=== PATIENT | female | born 1995 | race Caucasian/White ===

== ENCOUNTER 2019-04-30 04:00 | Inpatient (IN) | payer SELFPAY ==
[2019-04-29 22:43] VITALS: BMI 42.3
[2019-04-29 23:17] LABS: ROM Internal Control Test YES-OK TO RESULT pt. (Internal QC); ROM Patient Test Negative (Negative); Record Kit Lot#, ROM+ J8255
[2019-04-30] VITALS (18 sets, daily range): BP systolic 99–124; BP diastolic 43–74; PULSE 74–100; RESP 16–18; TEMP 36.2–37.1; O2SAT 95–98
[2019-04-30] MEDS: Lactated Ringers 1,000 ML 999 ML IV
[2019-04-30] MEDS: hydrOXYzine PAM 25 MG Capsule 100 MG PO (00:28)
[2019-04-30] MEDS: 0.9% Saline Lock 10 ML Syringe IV ×3 (01:01→21:22)
[2019-04-30] MEDS: Nalbuphine 10 MG/ML Ampul IV (03:46)
[2019-04-30] MEDS: Lactated Ringers 1,000 ML 200 ML IV (03:59)
[2019-04-30] MEDS: Lactated Ringers 500 ML 999 ML IV ×3 (03:59→07:53)
[2019-04-30 04:45] LABS: Absolute Lymphocyte Count 1.49 X10^3/uL (0.83-4.51); Absolute Neutrophil Count 10.6 X10^3/uL (2.0-7.7); Basophil# 0.03 X10^3/uL; Basophil% 0.2 % (0-1); Eosinophil# 0.06 X10^3/uL; Eosinophils% 0.5 % (0-5); Hematocrit 36.7 % (37-47); Hemoglobin 12.1 g/dL (12.0-15.0); Lymphocyte # 1.49 X10^3/ul (4.0); Lymphocyte % 11.3 % (19-41); Mean Corpuscular Hgb 27.1 pg (27.0-32.0); Mean Corpuscular Volume 82.3 fL (81-99); Mean Platelet Vol. 11.1 fl (6.2-12.0); Monocyte# 0.99 X10^3/uL; Monocyte% 7.5 % (0-10); NRBC Flagged by Analyzer 0 % (0-5); Neutrophil # 10.58 X10^3/uL (2.7-7.7); POSITIVE COUNT YES; Platelet Count 273 K/mm3 (150-450); RBC Distribution Width CV 12.8 % (11.6-14.6); RBC Distribution Width SD 38.3 fl (35.1-43.9); Red Blood Count 4.46 M/mm3 (4.2-5.4); White Blood Count 13.2 K/mm3 (4.4-11.0)
[2019-04-30 05:11] LABS: Differential Indicated SCAN CRITERIA MET
[2019-04-30 05:22] LABS: Differential Comment SCANNED
--- NOTE | 2019-04-30 06:42 | PCM.HP.OB ---
History Date of Admission: 04/30/19 Final MARCUS: 04/27/19 Gestational age: 40 Weeks and 3 Days History of this : This is a 23 year-old, 1 para 0 at 40-3/7 weeks gestation presents complaining contractions found to be in active labor. She denies any gross vaginal bleeding or leaking of fluid. Her has been complicated to date with obesity with BMI 42. She has otherwise been uncomplicated to date. Allergies amoxicillin Allergy (Verified 04/29/19 23:45) Hives Home Medications: Home Medications Famotidine/Ca Carb/Mag Hydrox [Pepcid Complete Tablet Chew] 1 ea PO DAILY PRN 04/30/19 Vits [Prenatabs FA] 2 tab PO DAILY 04/30/19 Smoking Status: Never smoker Alcohol: None Number of Fetus(es): 1 History Past Pregnancies: Past Pregnancies Delivery Date Name GA/Weeks Outcome Route Weight Gender Labor Length Anesthesia Delivery Location Provider FOB Expected Delivery Method: Spontaneous Vaginal Review of Systems Constitutional: Denies: Chills, Fever Eyes: Denies: Blurred vision Cardiovascular: Denies: Chest Pain Respiratory: Denies: Cough Gastrointestinal: Denies: Vomiting Genitourinary: Denies: Dysuria Skin: Denies: Rash Neurological: Denies: Slurred speech Hematologic/ Lymphatic: Denies: Anemia Physical Exam General: Alert, Cooperative, No apparent distress Cardiovascular: Regular rate Lungs: Normal air movement Abdomen: Soft, Non-Distended, Gravid, Obese, Appropriate for Gestational Age Extremities:: Other - edema 1+ [employer]GER: Normal external genitalia Estimated gestational size: Appropriate for gestational size Presentation: Cephalic Cervix Dilation (cm): 6 - arom w/ moderate clear fluid Station: -1 Effacement (%): 90 Assessment/Plan This is a 23 year-old, 1 para 0 at 40-3/7 weeks gestation in spontaneous labor. Patient had a prolonged deceleration and some variables upon admission. She also had some early and late decelerations. No repetitive decelerations currently. Patient desires epidural for pain control. Estimated weight is less than 4500 g clinically and pelvis clinically adequate to expect vaginal delivery.
--- NOTE | 2019-04-30 08:40 | NURSING ---
0855 dr lucas was in OR for c/s being done when pt wanted epidrual at 0607, and dr lyons was in the main OR
[2019-04-30] MEDS: Sodium Citrate/Citric Acid 30 ML UDC PO (08:42)
--- NOTE | 2019-04-30 11:04 | OP.PCM_ITS ---
Delivery Classification: JOSE Final MARCUS: 04/27/19 Gestational age: 40 Weeks and 3 Days transcript evaluator: Angela Ricks Type of Anesthesia:: Epidural Date of Procedure: 04/30/19 Pre-Operative Diagnosis: Non reassuring heart tracing Post-Operative Diagnosis: Same Indications: 23yo G1 presented in labor. She was having repetitive decelerations and the decision was made to proceed with a primary . Patient was 6cm dilated. Indications for : Distress Description of Procedure: Patient taken to OR where epidural anesthesia was dosed. She was prepped and draped in normal sterile fashion in the dorsal supine position with a leftward tilt. After ensuring adequacy of anesthesia the Pfannensteil skin incision was made and carried through to the underlying fascia with a bovie. The fascia was incised in the midline and carried laterally with the Kwok scissors. The rectus muscles were in the midline and the peritoneum was entered bluntly. The bladder flap was dissected down carefully with the Metzenbaum scissors and blunt dissection. The uterus was incised in a transverse fashion and then incision extended with cephalocaudad traction. The fetus was vertex and the head was brought to the incision in the flexed position. With good fundal pressure the head easily delivered. The head was gently guided to allow delivery of anterior & posterior shoulders. No excess traction placed on head. The body delivered easily. The 3VC cord was clamped and cut after 1 minute delay and the handed off to the waiting RN. The placenta was delivered w/ gentle traction and fundal massage and the uterus was exteriorized and cleared of all clots and debris. The uterine incision was closed with 1 vicryl suture in a running locked fashion. The bovie was used to further obtain further hemostasis of the uterine incision. A second imbricating layer of monocryl was placed. The uterus was returned to the peritoneal cavity. The pelvis was irrigated & then cleared of all clots and debris. The uterine incision was reexamined and found to be hemostatic. Some surgicel powder was placed over the uterine incision due to the denuded areas. The parietal peritoneum was reapproximated with running vicryl suture. The fascia was closed with looped PDS suture in a running standard fashion. The subcutaneous tissue was examined & any bleeding bovie cauterized. The subcutaneous tissue was reapproximated with plain gut suture. The skin was closed in a subcuticular fashion by the PIECE MARKER SMALL ARMS with me present in the labor and delivery suite. I performed the remainder of the procedure w/ assistance. Amniotic Membrane Rupture Type: Artificial Amniotic Fluid Description: Clear Placenta Disposition: [facility] Drain: Ellison to straight drain Fluids Replaced: 950ml Cord Entanglement: None Cord Vessel Description: 3 Vessels Esitmated Blood Loss (ml): 800ml Infant Gender: Male - Varun - weight =8-7 (1 minute): 8 (5 minute): 9 Delayed cord clamping: Yes Antibiotic Given: Ancef 3 grams IV x1, Zithromax 500 mg/5 mL X1 Complications: None
[2019-04-30] MEDS: Lactated Ringers 1,000 ML 150 ML IV (11:06)
[2019-04-30] MEDS: Oxytocin 30 units/NS 500 ml 30 UNITS/500 ML IV.SOLN 167 UNITS IV (11:07)
[2019-04-30] MEDS: Hydrocortisone 2.5% Crm 1 APPLIC TOPICAL (15:14)
[2019-04-30] MEDS: Ketorolac 30 MG/ML Syringe IV ×2 (15:14→21:22)
--- NOTE | 2019-04-30 20:32 | NURSING ---
Indwelling najera catheter present. WNL.
--- NOTE | 2019-04-30 20:32 | NURSING ---
Addendum entered by Shira Bledsoe RN 04/30/19 20:39: Patient educated on signs and symptoms of a PPH. Advised patient to call for help if she experiences any more gushes of blood or clots. Vital signs stable. Original Note: Patient had a gush of blood when she stood up from the chair. Patient's uterus firm and 2 below. Bleeding stopped after patient got back into bed and fundus checked.
[2019-05-01] VITALS (9 sets, daily range): BP systolic 99–110; BP diastolic 55–62; PULSE 85–108; RESP 16–20; TEMP 36.6–37.1; O2SAT 96–99
--- NOTE | 2019-05-01 00:13 | NURSING ---
Indwelling urinary catheter present. WNL.
[2019-05-01] MEDS: 0.9% Saline Lock 10 ML Syringe IV ×4 (03:15→21:03)
[2019-05-01] MEDS: Ketorolac 30 MG/ML Syringe IV ×4 (03:15→21:00)
[2019-05-01 07:00] LABS: Absolute Lymphocyte Count 2.02 X10^3/uL (0.83-4.51); Absolute Neutrophil Count 11.2 X10^3/uL (2.0-7.7); Basophil# 0.02 X10^3/uL; Basophil% 0.1 % (0-1); Eosinophils% 0.7 % (0-5); Hematocrit 23.8 % (37-47); Hemoglobin 7.7 g/dL (12.0-15.0); Lymphocyte # 2.02 X10^3/ul (4.0); Lymphocyte % 13.9 % (19-41); Mean Corp Hgb Conc 32.4 g/dL (32-36); Mean Corpuscular Hgb 26.9 pg (27.0-32.0); Mean Corpuscular Volume 83.2 fL (81-99); Mean Platelet Vol. 9.8 fl (6.2-12.0); Monocyte# 1.09 X10^3/uL; Monocyte% 7.5 % (0-10); NRBC Flagged by Analyzer 0 % (0-5); Neutrophil # 11.18 X10^3/uL (2.7-7.7); Neutrophil % 76.8 % (47-70); Platelet Count 232 K/mm3 (150-450); RBC Distribution Width CV 13.3 % (11.6-14.6); RBC Distribution Width SD 40.6 fl (35.1-43.9); Red Blood Count 2.86 M/mm3 (4.2-5.4); White Blood Count 14.6 K/mm3 (4.4-11.0)
--- NOTE | 2019-05-01 09:12 | PCM.PN.OB ---
Subjective: Well controlled. Average lochia. No nausea or vomiting. Has been up to urinate this morning. - Physical Exam General: Alert, Cooperative, No apparent distress Abdomen: Soft, Non-Distended, Obese, Tender - Appropriately Extremities: Edema - 2+ Skin: Incision - The bandage is clean dry and intact Vital Signs Temp Pulse Resp BP Pulse Ox 98.7 F 96 16 99/57 L 99 05/01/19 03:17 05/01/19 07:18 05/01/19 07:18 05/01/19 03:17 05/01/19 07:18 Oxygen Delivery Method Room Air Weight: 112 kg Body Mass Index (BMI) 42.3 Intake and Output for Last 24 Hours 04/29/19 04/30/19 05/01/19 23:59 23:59 23:59 Intake Total 6240.00 / 6240.00 1400 / 1400 Output Total 575 / 575 950 / 950 Balance 5665.00 / 5665.00 450 / 450 Laboratory Tests Past 24 Hrs 05/01/19 06:33 WBC 14.6 H RBC 2.86 L Hgb 7.7 L Hct 23.8 L MCV 83.2 MCH 26.9 L MCHC 32.4 RDW Std Deviation 40.6 RDW Coeff of Meg 13.3 Plt Count 232 MPV 9.8 Immature Gran % (Auto) 1.000 H Neut % (Auto) 76.8 H Lymph % (Auto) 13.9 L [place] % (Auto) 7.5 Eos % (Auto) 0.7 Baso % (Auto) 0.1 Absolute Neuts (auto) 11.2 H Absolute Lymphs (auto) 2.02 Nucleated RBC % 0 Medical Necessity - Tobacco Use Smoking Status: Never smoker Assessment/Plan Postoperative day #1 status post primary section. Patient and are doing well. She is tolerating acute blood loss anemia well. Will recheck CBC in the morning. Monitor for signs and symptoms of hypovolemia. Patient is working on breast-feeding. Routine postoperative care.
[2019-05-01] MEDS: Acetaminophen 500 MG Tablet 1000 MG PO (17:12)
--- NOTE | 2019-05-01 21:21 | NURSING ---
left side of meplex silver has pulled loose, new meplex dressing applied using sterile technique.
[2019-05-02 02:30] VITALS: BP 118/73; PULSE 100; RESP 18; TEMP 36.6
[2019-05-02] MEDS: Ketorolac 30 MG/ML Syringe IV ×2 (02:33→09:13)
[2019-05-02] MEDS: 0.9% Saline Lock 10 ML Syringe IV ×3 (02:34→09:13)
[2019-05-02] MEDS: Acetaminophen 500 MG Tablet 1000 MG PO (05:09)
[2019-05-02 05:11] LABS: Hematocrit 24.2 % (37-47); Hemoglobin 7.8 g/dL (12.0-15.0); Mean Corp Hgb Conc 32.2 g/dL (32-36); Mean Corpuscular Hgb 27.1 pg (27.0-32.0); Mean Platelet Vol. 9.6 fl (6.2-12.0); Platelet Count 256 K/mm3 (150-450); RBC Distribution Width CV 13.3 % (11.6-14.6); RBC Distribution Width SD 40.5 fl (35.1-43.9); Red Blood Count 2.88 M/mm3 (4.2-5.4)
[2019-05-02 07:21] VITALS: BP 117/70; PULSE 90; RESP 16; TEMP 36.1; O2SAT 97
--- NOTE | 2019-05-02 09:52 | PN.OBGYN_ITS ---
Subjective: Pain well controlled, average lochia. Patient has had a bowel movement. Is ambulating urinating without difficulty. She denies any chest pain, pa lpitations, lightheadedness or shortness of breath. - Physical Exam General: Alert, Cooperative, No apparent distress Abdomen: Soft, Distended - Mildly, softly, Obese, Tender - Appropriately Extremities: Edema - 2+, no clonus. Skin: Incision - The bandage is clean dry and intact Vital Signs Temp Pulse Resp BP Pulse Ox 97 F L 90 16 117/70 97 05/02/19 07:21 05/02/19 07:21 05/02/19 07:21 05/02/19 07:21 05/02/19 07:21 Oxygen Delivery Method Room Air Weight: 112 kg Body Mass Index (BMI) 42.3 Intake and Output for Last 24 Hours 04/30/19 05/01/19 05/02/19 23:59 23:59 23:59 Intake Total 6240.00 / 6240.00 1400 / 1400 Output Total 575 / 575 1475 / 1475 Balance 5665.00 / 5665.00 -75 / -75 Laboratory Tests Past 24 Hrs 05/02/19 05:03 WBC 12.0 H RBC 2.88 L Hgb 7.8 L Hct 24.2 L MCV 84.0 MCH 27.1 MCHC 32.2 RDW Std Deviation 40.5 RDW Coeff of Meg 13.3 Plt Count 256 MPV 9.6 Medical Necessity - Tobacco Use Smoking Status: Never smoker Assessment/Plan Operative day #2 status post primary section. Patient doing well. Routine instructions and discharge instructions were given.
--- NOTE | 2019-05-02 09:53 | DS.PCM_ITS ---
Discharge Date and Diagnosis Date of Admission: 04/30/19 Date of Discharge: 05/02/19 Hospital Course and Treatment Operations: - - Primary low transverse section via Pfannenstiel skin incision with double layer uterine closure Procedures: None Summary of Care Provided: The patient is a 23 year old [employer] 1 para 0 who was admitted in labor. She had several prolonged decelerations. She had variable and late decelerations. Her active phase of labor was somewhat prolonged. She was at 6 cm without significant change. With persistent category 2 heart tracing remote from delivery, decision was made to proceed with section. section was performed without difficulty. EBL was estimated to be 800 cc at time of surgery. However, based on lab changes, overall estimated blood loss after surgery would have been around 2300 cc, she is consistent with postoperative hemorrhage. She did not have atony.. She had significant postoperative anemia which she was tolerating well. Postoperative day #2 her hemoglobin was stable and did not fall further. She was tolerating the anemia well. She was discharged home with routine instructions and prescriptions. She is to start iron and continue her vitamins. Prescription for narcotics was not given as patient was not taking them in the hospital. - Physical Exam Vital Signs Temp Pulse Resp BP Pulse Ox 97 F L 90 16 117/70 97 05/02/19 07:21 05/02/19 07:21 05/02/19 07:21 05/02/19 07:21 05/02/19 07:21 Oxygen Delivery Method Room Air Weight: 112 kg Body Mass Index (BMI) 42.3 Intake and Output for Last 24 Hours 04/30/19 05/01/19 05/02/19 23:59 23:59 23:59 Intake Total 6240.00 / 6240.00 1400 / 1400 Output Total 575 / 575 1475 / 1475 Balance 5665.00 / 5665.00 -75 / -75 Laboratory Tests Past 24 Hrs 05/02/19 05:03 WBC 12.0 H RBC 2.88 L Hgb 7.8 L Hct 24.2 L MCV 84.0 MCH 27.1 MCHC 32.2 RDW Std Deviation 40.5 RDW Coeff of Meg 13.3 Plt Count 256 MPV 9.6 Discharge Diet: No Restrictions Discharge Activity: Return to Normal Activity, May Not Drive - for 2 weeks, May not drive while taking narcotic pain medications., May Shower, May Take a Tub Bath - in 7 days. May resume sexual activity in: 4-6 weeks Additional Activity Instructions:: Nothing in the vagina for 4-6 weeks. You may return to work/school in 6 weeks. Call your doctor if your incision/area has: Continuous Slow Oozing, Sudden Increased Bleeding, Increased Pain/ Swelling, Increased Redness, Foul Smelling Discharge Call your doctor if you observe: Fever of 101 or Higher, Using more than one pad per hour - for 2 hours Suture Line Care: Avoid Pulling/Pushing, Avoid Pinching/Bending Cleanse incision/area with: Keep Dressing Clean & Dry Home Medications: Medications to take at Discharge Vits [Prenatabs FA ] 2 tab PO DAILY 04/30/19 Ferrous Sulfate 325 mg PO QODAY #15 tab 05/02/19 Ibuprofen [Motrin] 600 mg PO Q6H PRN #60 tab 05/02/19 Following Prescrptions Were Given to Patient: Ferrous Sulfate 325 mg PO QODAY #15 tab Transmission Status: Received by [facility] #[id number] Ibuprofen [Motrin] 600 mg PO Q6H PRN #60 tab PRN Reason: Pain Transmission Status: Received by [facility] #[id number] Primary Care Physician: Care Physician,No Primary [Primary Care Provider] - Please Follow Up With: Carito Bettencourt - Call to make an appointment for an incision check in 1-2 [phone] When: You will need a post check in 6 weeks. Medical Necessity - Tobacco Use Smoking Status: Never smoker Meaningful Use Info Meaningful Use Diagnoses (Choose all that apply): None applicable
--- NOTE | 2019-05-02 09:53 | DCINST_ITS ---
Discharge Diet: No Restrictions Discharge Activity: Return to Normal Activity, May Not Drive - for 2 weeks, May not drive while taking narcotic pain medications., May Shower, May Take a Tub Bath - in 7 days. May resume sexual activity in: 4-6 weeks Lifting Restrictions: 20 pounds Additional Activity Instructions:: Nothing in the vagina for 4-6 weeks. You may return to work/school in 6 weeks. Call your doctor if your incision/area has: Continuous Slow Oozing, Sudden Increased Bleeding, Increased Pain/ Swelling, Increased Redness, Foul Smelling Discharge Call your doctor if you observe: Fever of 101 or Higher, Using more than one pad per hour - for 2 hours Suture Line Care: Avoid Pulling/Pushing, Avoid Pinching/Bending Cleanse incision/area with: Keep Dressing Clean & Dry Additional Instructions: If you experience any of the following, contact your healthcare provider. * Bleeding that soaks a pad every hour for 2 hours * Fever 100.4 or higher * Unrelieved incision or abdominal pain * Swelling, redness, discharge or bleeding from your incision or episiotomy site * Your incision begins to separate * Problems urinating (including inability to urinate or burning while urinating). * Visual changes * Severe headache * Flu-like symptoms * Pain or redness in one of both of your breasts * Pain, warmth, tenderness or swelling in your legs, especially the calf area * Frequent nausea and vomiting * Symptoms of depression or anxiety If you experience any of the following, call 911 or go to the nearest Emergency Room. * Chest pain * Problems breathing * Seizure activity * Partial or complete paralysis of a body part, slurred speech, weakness or drooping of the face, or a sudden inability to walk or hold your balance Allergies/Adverse Reactions: Allergies amoxicillin Allergy (Verified 04/29/19 23:45) Hives Medications to take at Discharge Vits [Prenatabs FA ] 2 tab PO DAILY 04/30/19 Ferrous Sulfate 325 mg PO QODAY #15 tab 05/02/19 Ibuprofen [Motrin] 600 mg PO Q6H PRN #60 tab 05/02/19 The following prescriptions were given: Ferrous Sulfate 325 mg PO QODAY #15 tab Transmission Status: Pending to [facility] #[id number] Ibuprofen [Motrin] 600 mg PO Q6H PRN #60 tab PRN Reason: Pain Transmission Status: Pending to [facility] #[id number] Follow-Up: Call to make an appointment with your doctor for an incision check in 1-2 weeks. You will also need a 6 week post- follow up appointment. Test results from this visit will be discussed in further detail at your follow- up appointment, if applicable. Please Follow Up With: Carito Bettencourt - Call to make an appointment for an incision check in 1-2 [phone] When: You will need a post check in 6 weeks. Primary Care Physician: Care Physician,No Primary [Primary Care Provider] -
== END 2019-05-02 11:20 | disposition home or self-care (01) | DRG 787 ==
LOC: WPOUT 04:06
PROVIDERS: Advanced Practice Midwife; Obstetrics & Gynecology; Admitting Provider Obstetrics & Gynecology; Visit Provider Obstetrics & Gynecology
DX: O76 Abnormality in fetal heart rate and rhythm complicating labor and delivery (principal); O72.1 Other immediate postpartum hemorrhage; D62 Acute posthemorrhagic anemia; O90.81 Anemia of the puerperium; O99.214 Obesity complicating childbirth; E66.9 Obesity, unspecified; Z3A.40 40 weeks gestation of pregnancy; Z37.0 Single live birth
CPT/HCPCS: 59050; 84112; 85025; 85027; 86850; 86900; 86901; 99218; J7050; J7120; A4216; G0378; J2405

== ENCOUNTER 2021-10-17 16:50 | Outpatient (CLI) | payer SELFPAY ==
[2021-10-17 17:09] VITALS: TEMP 36.1
[2021-10-17 17:15] VITALS: BP 114/78; PULSE 92
[2021-10-17 17:16] VITALS: PULSE 109; O2SAT 97
[2021-10-17 19:39] VITALS: BMI 41.6
--- NOTE | 2021-10-30 16:43 | OB.TRI.NOTE ---
HPI - General HPI Narrative ARPITA SIMMONS, is a 25 F who presents for extended monitoring due to deceleration. No vaginal bleeding or leakage of fluid PFSH PFSH Medical History (Updated 10/25/21 @ 00:01 by Background Daemon) delivery delivered Headache Maternal obesity affecting , antepartum Polyhydramnios Polyhydramnios, third trimester, delivered Home Medications vit,[id number] 2 tab PO DAILY 04/30/19 [History Last Taken 10/17/21] ibuprofen 600 mg PO Q6H PRN #60 tablet 10/22/21 [Rx Last Taken Unknown] Allergy/AdvReac Type Severity Reaction Status Date / Time amoxicillin Allergy Hives Verified 10/20/21 15:14 Surgical History (Updated 10/25/21 @ 00:01 by Background Daemon) Previous section Social History Smoking Status: Never smoker History Elective abortions Hx Para 1 Spontaneous abortions Hx # Term Pregnancies Ectopic pregnancies Hx # Pregnancies Multiple births # of living children NST FHR Rate Baby A Baseline: 140 Variability:: Moderate Accelerations:: 15 x 15 Decelerations:: Variable NST Reactive:: Yes Assessment & Plan (1) 38 weeks gestation of : (2) BMI 40.0-44.9, adult: PLAN: 1) Reactive NST 2) D/C home
== END 2021-10-17 23:59 | disposition home or self-care (01) ==
LOC: WPOUT 16:58 → WP 16:59
PROVIDERS: Visit Provider Advanced Practice Midwife
DX: O36.8330 Maternal care for abnormalities of the fetal heart rate or rhythm, third trimester, not applicable or unspecified (principal); Z3A.38 38 weeks gestation of pregnancy; O34.219 Maternal care for unspecified type scar from previous cesarean delivery; O99.213 Obesity complicating pregnancy, third trimester; E66.9 Obesity, unspecified
CPT/HCPCS: 59025; 59050; 99218; G0378

== ENCOUNTER 2021-10-20 13:50 | Inpatient (IN) | payer SELFPAY ==
[2021-10-20] VITALS (26 sets, daily range): BP systolic 96–128; BP diastolic 50–80; PULSE 63–88; RESP 16–18; TEMP 36.1–36.5; O2SAT 95–100; BMI 41.5
[2021-10-20] MEDS: Lactated Ringers 1,000 ML 999 ML IV (15:30)
[2021-10-20 15:46] LABS: Absolute Lymphocyte Count 1.31 X10^3/uL (0.83-4.51); Absolute Neutrophil Count 8.2 X10^3/uL (2.0-7.7); Basophil# 0.03 X10^3/uL; Basophil% 0.3 % (0-1); Eosinophil# 0.02 X10^3/uL; Eosinophils% 0.2 % (0-5); Hematocrit 35.7 % (37-47); Hemoglobin 12.8 g/dL (12.0-15.0); Lymphocyte # 1.31 X10^3/ul (0.83-4.51); Mean Corp Hgb Conc 35.9 g/dL (32-36); Mean Corpuscular Hgb 29.3 pg (27.0-32.0); Mean Corpuscular Volume 81.7 fL (81-99); Mean Platelet Vol. 9.4 fl (6.2-12.0); Monocyte# 0.51 X10^3/uL; NRBC Flagged by Analyzer 0 % (0-5); Neutrophil # 8.19 X10^3/uL (2.7-7.7); Neutrophil % 81.1 % (47-70); Platelet Count 272 K/mm3 (150-450); RBC Distribution Width CV 13.1 % (11.6-14.6); RBC Distribution Width SD 38.8 fl (35.1-43.9); Red Blood Count 4.37 M/mm3 (4.2-5.4); White Blood Count 10.1 K/mm3 (4.4-11.0)
[2021-10-20] MEDS: Acetaminophen 500 MG Tablet 1000 MG PO ×2 (16:02→22:05)
[2021-10-20] MEDS: Sodium Citrate/Citric Acid 30 ML UDC PO (16:03)
--- NOTE | 2021-10-20 16:15 | NURSING ---
Report received from Maria Antonia MOSELEY, taking over pt care at this time.
[2021-10-20] MEDS: Lactated Ringers 1,000 ML 150 ML IV (16:31)
[2021-10-20] MEDS: Cefazolin 2 GM in 0.9% Normal Saline 100 ML IV (16:40)
--- NOTE | 2021-10-20 16:45 | PCM.HP.OB ---
HPI - General General Date of Admission: 10/20/21 HPI Narrative ARPITA SIMMONS, is a 25-year-old female 3 para 1-0-1-1 who presents at 38 weeks gestation in the office. She had a complaint today of a persistent headache. Denies visual changes, epigastric pain. Is been present for approximately 3 days waxing and waning. Tylenol did not help. She was able to sleep last night and felt a little better this morning but it came back later this afternoon. She not take anything for it today. She notes she has had decreased movement over the past few days and has barely been getting 10 movements in 2 hours. She has been having some [place] contractions and intermittent abdominal pain. She denies any gross vaginal bleeding or leaking of fluid. She was seen in the office and had a late deceleration on nonstress test. Decision was made to proceed with section as she had a previous section and is full-term. Maternal Data Information Final MARCUS: 11/01/21 Final MARCUS Source: LMP Gestational age: 38 0/7 [facility] Medical History (Updated 10/20/21 @ 16:[address] Joselin Ding MD) Headache Polyhydramnios Home Medications vit,[id number] 2 tab PO DAILY 04/30/19 [History Last Taken 10/17/21] Allergy/AdvReac Type Severity Reaction Status Date / Time amoxicillin Allergy Hives Verified 10/20/21 15:14 Surgical History (Updated 10/20/21 @ 16:[address] Joselin Ding MD) Previous section Social History Smoking Status: Never smoker History Elective abortions Hx Para 1 Spontaneous abortions Hx # Term Pregnancies Ectopic pregnancies Hx # Pregnancies Multiple births # of living children ROS Constitutional Constitutional: Denies fatigue, fever(s) or malaise Eyes Eyes: Denies change in vision ENT HEENT: Denies dizziness or headache(s) Cardiovascular Cardiovascular: Denies chest pain, dyspnea or lightheadedness Respiratory/Chest Respiratory/Chest: Denies cough or dyspnea Gastrointestinal Gastrointestinal: Denies change in bowel habits Genitourinary Genitourinary: Denies burning urination or genital lesions Integumentary Integumentary: Denies rash Neurologic Neurologic: Denies confusion, dizziness, headache(s), numbness or weakness Vital Signs Vital Signs Vital Signs: 10/20/21 15:42 10/20/21 15:46 Temperature 97.7 F L Temperature Source Tympanic Pulse Rate 76 88 Blood Pressure 122/71 H BP Systolic 122 BP Diastolic 71 Pulse Ox 98 98 Weight Weight: 106.413 kg Body Mass Index (BMI) 41.5 Physical Exam Const alert and no apparent distress General Appearance: cooperative HEENT normocephalic Resp normal respiratory effort Cardio regular rate GI soft to palpation GI Narrative: gravid, nontender, appropriate for gestational age Extremity no calf tenderness General Extremity: edema Skin no wounds Rashes: No rashes noted Psych activity/motor behavior normal Labs Labs Labs: Blood Type B POSITIVE Antibody Screen NEGATIVE Hct 35.7 % (37-47) L Hgb 12.8 g/dL (12.0-15.0) Rhogam given: No Assessment & Plan (1) 38 weeks gestation of : PLAN: Risk benefits alternatives to repeat section were discussed with patient, questions were answered to her satisfaction and consent was signed. She desires to proceed. We will proceed with delivery as patient is multiple complaints and risk factors and is full-term. Risk of continuing the at 38 weeks versus risk of delivery at 38 weeks were reviewed. (2) Previous delivery affecting , antepartum: (3) Maternal obesity affecting , antepartum: (4) BMI 40.0-44.9, adult: (5) heart deceleration: (6) Decreased movement affecting management of in third trimester: (7) Polyhydramnios affecting in first trimester:
--- NOTE | 2021-10-20 17:04 | UTER_PTH ---
PATIENT: ARPITA SIMMONS LOC: [facility] U#:[id number] AGE/SX: 25/F ROOM: [facility] RE10/20/[address]: Dr. 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 AM:cortez 10/24/2021 MICROSCOPIC DESCRIPTION Slides are reviewed. GROSS DESCRIPTION Received in fixative is one container labeled with the patient's name and designated uterine fibroid. The specimen consists of a rubbery fragment of pink-mar soft tissue measuring 3 x 1.8 x 1 cm. The specimen is serially sectioned along its narrow axis to reveal homogenous pink-white cut surfaces. The specimen is totally submitted in two cassettes. / AM:cortez 10/23/2021 TC:1 CPT: 28656
--- NOTE | 2021-10-20 17:34 | OP.PCM_ITS ---
Assessment & Plan (1) Polyhydramnios, third trimester, delivered: (2) BMI 40.0-44.9, adult: (3) Maternal obesity affecting , antepartum: (4) delivery delivered: Maternal Data Information Final MARCUS: [birth year]21 Gestational age: 38 Details Operative Information Date of Procedure: 10/20/21 Pre-Operative Diagnosis: 38 weeks, deceleration previous c/s, polyhydramnios, decreased movement Post-Operative Diagnosis: same Indications for : Repeat Elective Classification: Scheduled Procedure Type: low transverse dry charge process attendant #1: Rosalee Mckenzie Type of Anesthesia: Spinal Anesthesiologist: Regan Rosario Special Medications: duramorph Antibiotic Given: Ancef 2 grams IV x1 Drain: Ellison to straight drain Estimated Blood Loss: 800 Fluids Replaced: 500 Procedure Start Time: 17:00 Time of Delivery: 17:04 Findings Description of Procedure: The patient was taken to the operating room. She was prepped and draped in the dorsal supine position with a leftward tilt. A Pfannenstiel skin incision was made approximately 2 cm above the symphysis pubis and carried through to underlying layer fascia with the scalpel. The fascia was incised incised in the midline and extended laterally with the Kwok scissors. The fascia was dissected off the rectus muscles with blunt and sharp dissection. The rectus muscles were in the midline and the peritoneum was entered bluntly. The peritoneal incision was stretched and the bladder blade was placed. The uterine incision was made in a low transverse fashion with the scalpel and extended superiorly and inferiorly with blunt dissection. The amniotic membranes were ruptured bluntly and clear amniotic fluid returned. The infant's head was brought to the incision in the flexed position and delivered without difficulty. The remainder of the was delivered with gentle traction and fundal pressure in the standard fashion. The mouth and nares were bulb suctioned. The cord was clamped and cut as the infant was stimulated. Cord clamping was delayed. The was handed off to the waiting nursing staff. The placenta was delivered with fundal massage and gentle traction in the standard fashion. The uterus was exteriorized and cleared of all clots and debris. The cervix was dilated with a ring forcep. The uterine incision was closed with #1 Vicryl in a running locked fashion. A second layer of the same suture was used in an imbricating fashion. The incision was examined and was found to be hemostatic. There was a small fibroid on the right mid uterine fundus. This was on the anterior surface of the uterus. There were some omental adhesions. These were taken down with the Bovie. The small fibroid was then clamped at the base with a Kerri clamp and removed with the Bovie. #1 Vicryl [id number] suture was placed around the pedicle and it was hemostatic. The specimen was sent. The uterus was placed back into the peritoneal cavity and hemostasis was again confirmed. The rectus muscles were examined and any bleeding was Bovie cauterized. The parietal peritoneum and rectus muscles were closed en bloc with an 0 Vicryl running suture. The surgical teams outer gloves were then changed. The rectus fascia was examined and any bleeding was Bovie cauterized and the rectus fascia was closed with 0 PDS suture in a running standard fashion. The subcutaneous tissue was examining and any bleeding was Bovie cauterized. The subcutaneous tissue was reapproximated with 3-0 Vicryl suture. The skin was closed in a subcuticular fashion by the HANDBELL CHOIR DIRECTOR with me present in the labor and delivery suite. I performed the remainder of the procedure with assistance. All sponge, lap, and needle counts were correct. The patient was taken to her room for recovery in a stable condition. Presentation: Positive for Vertex Amniotic Membrane Rupture Type: Artificial Amniotic Fluid Description: Clear Placental Delivery Description: Expressed Placenta Disposition: [facility] Specimen(s) Sent to Pathology: fibroid Cord Vessel Description: 3 Vessels Cord Entanglement: None A Gender: Male (Hunter, 7lb 13 oz) (1 minute): 8 (5 minute): 9 Delayed Cord Clamping: Yes Complications Complications: none Admit VTE Documentation VTE Present on Admission: No VTE Mechan Device Prophylaxis: SCD's VTE Pharm Prophylaxis Ordered: Yes
[2021-10-20] MEDS: Oxytocin 30 units/NS 500 ml 30 UNITS/500 ML IV.SOLN 167 UNITS IV (18:20)
[2021-10-20] MEDS: Ketorolac 30 MG/ML Syringe IV (19:05)
[2021-10-20 21:44] LABS: Pathology Specimen OB SEE PATHOLOGY REPORT
[2021-10-20] MEDS: Lactated Ringers 1,000 ML 100 ML IV (22:02)
[2021-10-21] VITALS (13 sets, daily range): BP systolic 92–100; BP diastolic 47–57; PULSE 66–82; RESP 16–18; TEMP 36.2–36.9; O2SAT 96–98
[2021-10-21] MEDS: Ondansetron 4 MG/2 ML Vial IV (00:20)
[2021-10-21] MEDS: 0.9% Saline Lock 10 ML Syringe IV ×2 (00:20→11:45)
[2021-10-21] MEDS: Ketorolac 30 MG/ML Syringe IV ×3 (00:22→11:44)
[2021-10-21] MEDS: Acetaminophen 500 MG Tablet 1000 MG PO ×4 (03:51→22:11)
[2021-10-21] MEDS: Enoxaparin 40 MG/0.4 ML Syringe SC ×2 (06:09→18:25)
[2021-10-21 06:28] LABS: Mean Corp Hgb Conc 35.5 g/dL (32-36); Mean Corpuscular Hgb 29.3 pg (27.0-32.0); Mean Corpuscular Volume 82.4 fL (81-99); Mean Platelet Vol. 9.2 fl (6.2-12.0); Platelet Count 200 K/mm3 (150-450); RBC Distribution Width CV 13.2 % (11.6-14.6); RBC Distribution Width SD 39.8 fl (35.1-43.9); Red Blood Count 3.76 M/mm3 (4.2-5.4); White Blood Count 9.3 K/mm3 (4.4-11.0)
[2021-10-21] MEDS: Senna/Docusate Sodium 1 Tablet PO (10:54)
[2021-10-21] MEDS: Hydrocortisone 2.5% Crm 1 APPLIC TOPICAL ×3 (14:55→22:13)
--- NOTE | 2021-10-21 15:58 | NURSING ---
1530-noted slightly raised rash to lt/mid abd, using hydrocortisone cream.
[2021-10-21] MEDS: Ibuprofen 600 MG Tablet PO ×2 (18:25→23:35)
[2021-10-22 02:05] VITALS: BP 99/42; PULSE 71; RESP 16; TEMP 36.3; O2SAT 96
[2021-10-22] MEDS: Acetaminophen 500 MG Tablet 1000 MG PO ×2 (04:40→10:15)
[2021-10-22] MEDS: Enoxaparin 40 MG/0.4 ML Syringe SC (06:50)
[2021-10-22] MEDS: Ibuprofen 600 MG Tablet PO (06:50)
[2021-10-22 08:33] VITALS: BP 112/51; PULSE 73; RESP 15; TEMP 36.2
--- NOTE | 2021-10-22 10:10 | PCM.PN.BLA ---
Progress Note Pain well controlled. Average lochia. Patient states she is had a bowel movement. Urinating without difficulty. Ambulating and tolerating regular diet. Physical Exam Const alert General Appearance: cooperative GI GI Narrative: soft, moderate distention, fundus firm, appropriately tender. Abdominal bandage clean dry and intact Assessment & Plan Assessment/Plan (1) delivery delivered: PLAN: Postoperative day #2 status post repeat section. Patient and are doing well. Desires discharge home today.
--- NOTE | 2021-10-22 10:11 | PCM.DC.SUM ---
Providers Date of Admission: 10/20/21 Primary Care Physician: Ayse Primary Care Phys Reason For Visit: REPEAT Diagnosis Discharge Diagnosis (1) delivery delivered: Status: Acute Code(s): O82 - Encounter for delivery without indication Medications at Discharge Home Medications vit,[id number] 2 tab PO DAILY 04/30/19 ibuprofen 600 mg PO Q6H PRN #60 tablet 10/22/21 Hospital Course Operations - (Repeat low transverse section performed on 10/20/2021) Summary of Care Provided Hospital Course: 25-year-old multigravida female with history of prior section was performed admitted from the office on 10/20/2021 for a late deceleration. Patient had complaints of decreased movement. was complicated by maternal obesity with BMI of 41, polyhydramnios. The section was performed without difficulty. By postoperative day #2 she was ambulating, urinating tolerating regular diet without difficulty and desired discharge home. Weight / BMI Weight Weight: 106.413 kg Body Mass Index (BMI) 41.5 ABG / Lab / Microbiology Data Result Diagrams: 10/21/21 06:15 Microbiology: Microbiology 10/20/21 15:30 Nasal Secretion SARS-CoV-2 Antigen (Rapid) - Final D/C Instructions Discharge Diet: No restrictions May resume sexual activity in: 4-6 weeks Lifting Restrictions: 20 pounds Additional Activity Instructions: Nothing in the vagina for 4-6 weeks. You may return to work/school in 6 weeks. Call your doctor if your incision/area has: Continuous Slow Oozing, Sudden Increased Bleeding, Increased Pain/ Swelling, Increased Redness and Foul Smelling Discharge Call your doctor if you observe: Fever of 101 or Higher and Using more than 1 pad per hour (for 2 hours) Suture Line Care: Avoid Pulling/Pushing and Avoid Pinching/Bending Cleanse incision/area with: Keep Dressing Clean & Dry Please Follow Up With: Joselin Ding MD When: Call to make an appointment for an incision check in 1-2 [phone]. You will need a post check in 6 weeks. Meaningful Use Info Meaningful Use Diagnoses (Choose all that apply): None applicable Discharge Plan Admission Admit Date/Time: 10/20/21 13:50 Primary Reason for Your Visit: Repeat Attending Provider: Joselin Ding Primary Care Provider: Care Physician,No Primary Discharge Orders/Prescriptions Prescriptions: New ibuprofen [ibuprofen] 600 MG tablet 600 mg PO Q6H PRN (Reason: Pain) Qty: 60 RF: 1 Continued vit,[id number] 1 TABLET tablet 2 tab PO DAILY RF: 0 Referrals / Follow Up: Care Physician,No Primary [Primary Care Provider] - Disposition Disposition (needs filled in before D/C Order can be placed): Home, Self Care
== END 2021-10-22 11:00 | disposition home or self-care (01) | DRG 788 ==
PROVIDERS: Admitting Provider Obstetrics & Gynecology; Visit Provider Obstetrics & Gynecology
DX: O40.3XX0 Polyhydramnios, third trimester, not applicable or unspecified (principal); E66.9 Obesity, unspecified; D25.9 Leiomyoma of uterus, unspecified; O34.13 Maternal care for benign tumor of corpus uteri, third trimester; O99.214 Obesity complicating childbirth; O34.211 Maternal care for low transverse scar from previous cesarean delivery; O76 Abnormality in fetal heart rate and rhythm complicating labor and delivery; O36.8130 Decreased fetal movements, third trimester, not applicable or unspecified; Z3A.38 38 weeks gestation of pregnancy; Z37.0 Single live birth
CPT/HCPCS: 59025; 59050; 85025; 85027; 86850; 86900; 86901; 87426; 88305; 99218; J7120; A4216; G0378; J2405